=== PATIENT | female | born 1935 | race Caucasian/White ===

== ENCOUNTER → 2016-09-02 | Outpatient (CLI) | payer MEDICARE, OTHER ==
[~2016-09-02] VITALS: Ht 167.6 cm; Wt 59.9 kg
[~2016-09-02] MED LIST: REGADENOSON 0.4 MG/5 ML SYR (LEXISCAN) IV ONE
[2016-09-02] MEDS: CATHETER FLUSH 10 ML SYR IV PRN ×2 (08:38→10:05)
[2016-09-02 10:03] VITALS: BP 159/57
--- NOTE | 2016-09-02 18:32 | STRESS TEST ---
PROCEDURE PHYSICIAN: HIPOLITO AGUDELO DATE OF PROCEDURE: 09/02/2016 LEXISCAN MYOVIEW STRESS TEST REPORT REFERRING PHYSICIAN: Dr. Carpenter. INDICATIONS FOR THE PROCEDURE: 1. Shortness of breath. 2. Hypertension. BASELINE HEART RATE: 86 BASELINE BLOOD PRESSURE: 159/57 BASELINE EKG: Sinus rhythm with no ischemic changes. SUMMARY: The patient was injected with 9.95 mCi of technetium 99 Myoview and the resting images were obtained. Then the patient received 0.4 mg of Lexiscan followed by 32.9 mCi of technetium 99 Myoview. Throughout the test, there were no EKG changes. The resting and stress images were reviewed compared in the short axis, horizontal long axis, and vertical long axis views. Review of the images showed good radiotracer uptake with no significant ischemia or infarction. SSS is 4, SDS 4, TID value 0.99. On the gated images, the left ventricle appeared to be normal size with normal contractility. Calculated ejection fraction 87%. CONCLUSION: 1. The patient tolerated Lexiscan well. 2. No ischemia or infarction on SPECT images. 3. Normal left ventricular size with normal contractility. Calculated ejection fraction 87%. Job ID: [id number] Dictated Date: 09/02/2016 17:03:18 Director Of Enterprise Applications Date: 09/02/2016 18:29:54 / boy
== END ==
LOC: CARD 08:02
PROVIDERS: ATTEND Internal Medicine Cardiovascular Disease
DX: I10 Essential (primary) hypertension (principal); R07.89 Other chest pain; R06.02 Shortness of breath; Z83.3 Family history of diabetes mellitus
CPT/HCPCS: 78452; 93017

== ENCOUNTER → 2016-09-10 | Outpatient (CLI) | payer MEDICARE, OTHER ==
--- NOTE | 2016-09-10 17:41 | Diagnostic Imaging Report ---
EXAMINATION: PET-CT TECHNIQUE: Serum glucose level at the time of the study is: 112 mg/dL. 12.2 mCi of FDG was administered intravenously followed by obtaining PET images with corresponding noncontrast CT scan images. The CT scan was performed for anatomic correlation and attenuation correction and was not performed according to the diagnostic protocol of the areas covered. The scan was performed from the head to mid thighs. INDICATION: Left lung mass. FINDINGS: There is symmetric FDG uptake in the brain. The neck demonstrates no suspicious increased FDG uptake. Mild uptake around the vocal cords is likely physiologic. No correlating CT scan abnormality seen. In the posterior lateral aspect of the left upper lobe, there is a nodule measuring 2.3 x 1.4 cm with peripheral calcification. This is a nonspecific CT scan appearance and is not diagnostic for a calcified granuloma. There is however baseline FDG activity in this nodule with maximum SUV of 1.4 in favor of benign etiology such as a post infectious granuloma. There is otherwise no significant hypermetabolic lesion seen in the chest. IN THE ABDOMEN AND PELVIS: There is urinary tract expected excretion of the radiotracer. No hypermetabolic mass is seen otherwise. IMPRESSION: Left upper lobe nonspecific peripheral calcified lung nodule demonstrates no significant FDG uptake in favor of benign etiology. A three-month followup low dose CT chest to ensure stability is recommended. Dictated by: Dictated on workstation # [id number]
== END ==
LOC: RAD 08:43
PROVIDERS: ATTEND Internal Medicine Critical Care Medicine
DX: R91.1 Solitary pulmonary nodule (principal)

== ENCOUNTER 2017-11-17 09:34 | Inpatient (IN) | payer MEDICARE, OTHER ==
[~2017-11-17] VITALS: Ht 168.9 cm; Wt 56.4 kg
[2017-11-17 22:50] VITALS: BP 144/89
[2017-11-17] MEDS ORDERED: HEParin DRIP 25000 UNIT/500ML 500 ML IV SCH (22:56)
[2017-11-17 23:00] VITALS: BP 149/74
[2017-11-17] MEDS ORDERED: FAMOTIDINE 20 MG (PEPCID) TABLET PO PRN (23:00)
[2017-11-17] MEDS ORDERED: HEParin 1000 UNIT/ML (10ML VIAL) FOR BOLUS IV PRN (23:00)
--- NOTE | 2017-11-17 23:03 | Cardiology History & Physical ---
HPI-Cardiology Cardiology Consultation Date of Consultation 11/17/17 Date of Admission Time Seen by Provider: 22:57 Indication: Shortness of breath HPI 82 years old lady with history of hypertension or hyperlipidemia, has been having increasing shortness of breath for the past 2 weeks which progressed to the point that she has orthopnea and PND. Denied any chest pain. Denied any palpitation, seen by Dr. AHUJA this morning and she was sent to the emergency room where she was noted to have elevated BNP and mild elevation in troponin level. She still laying down comfortably denied any active chest pain at this point. No previous cardiac history. Noted to have abnormal EKG with deep Q waves in the anterior leads and ST changes suggestive of subacute [facility] PMH-Cardiology Other PMHx Hypertension Hyperlipidemia Social History Patient Social History Marrital Status: single Employed/Student: retired Smoking: Never smoker Family Hx Other Noncontributory to her current condition ROS-Cardiology Review of Systems General: No Chills, No Night Sweats, No Fatigue, No Malaise, No Appetite HEENT: No Head Aches, No Visual Changes, No Eye Pain, No Ear Pain, No Dysphasia , No Sinus Congestion, No Post Nasal Drip, No Sore Throat Pulmonary: Dyspnea; No Cough, No Pleuritic Chest Pain Cardiovascular: Edema; No: Chest Pain, Palpitations, Orthopnea, Paroxysmal Noc. Dyspnea, Lt Headedness Gastrointestinal: No: Nausea, Vomiting, Abdominal Pain, Diarrhea, Constipation , Melena, Hematochezia Genitourinary: No Dysuria, No Frequency, No Incontinence, No Hematuria, No Retention Musculoskeletal: No: neck pain, shoulder pain, arm pain, back pain, hand pain, leg pain, foot pain Neurological: No: Weakness, Numbness, Incoordination, Change in speech, Confusion, Seizures Home Medications & Allergies Allergies: Coded Allergies: amoxicillin (Unverified Allergy, Unknown, 09/02/16) Exam-Cardiology Exam General Appearance: Alert, Oriented X3, Cooperative, No Acute Distress HEENT: Atraumatic, PERRLA Respiratory: Clear to Auscultation, Normal Air Movement Cardiovascular: Regular Rate, Normal S1, Normal S2, No Murmurs, Other (S3 is present) Abdominal: Normal Bowel Sounds, Soft, No Tenderness, No Hepatosplenomegaly, No Masses Extremities: No Clubbing, No Cyanosis, No Edema, Normal Pulses, No Tenderness/ Swelling Skin: No Rashes, No Breakdown, No Significant Lesion Neuro: Normal Gait, Normal Speech, Strength at 5/5 X4 Ext, Normal Tone, Sensation Intact Psych/Mental Status: Mental Status NL, Mood NL Results Labs Labs Labs from [facility] were reviewed, mild elevation in troponin, BNP is 3000 A/P-Cardiology Admission Diagnosis Shortness of breath Congestive heart failure Hypertension Hyperlipidemia Admission Status: Observation Assessment/Plan Shortness of breath, congestive heart failure with elevated BNP, previously had normal echocardiogram. Had a normal stress test in August 2016, mild elevation in troponin level. I will continue monitoring troponin level and reevaluate BNP level. Continue with diuretics for now Stress test was done on September 02, 2016 showing no ischemia or infarction, ejection fraction 87 percent, continue to monitor at this time Echocardiogram was done on August 16, 2016 showing normal left ventricular size with ejection fraction 65 percent, mild to moderate MR, mild to moderate AR, mild TR, PA pressure 25 mmHg, repeat 2-D echo in the morning Mild bilateral carotid stenosis, nonobstructive disease, last checkup was done in August 2016, continue to monitor Hypertension, has been on atenolol and amlodipine. Continue to monitor Hyperlipidemia, lipid profile was done on August 23, 2016 showing total cholesterol 185, triglyceride 157, HDL 58, LDL 31. I will repeat lipid profile. Mild peripheral edema, reporting improvement. Continue to monitor History of Pulmonary nodule, noted incidentally. Followed and managed by primary care physician Family history of heart disease. HIPOLITO AGUDELO MD Nov 17, 2017 23:03
[2017-11-17 23:15] VITALS: BP 149/74
[2017-11-17 23:30] VITALS: BP 142/77
[2017-11-17 23:30] LABS: HEMOGLOBIN 13.2 G/DL (11.5-16.0); MEAN PLATELET VOLUME 12.2 FL (7.4-10.4); RED BLOOD COUNT 4.41 10^6/uL (4.35-5.85); RED CELL DISTRIBUTION WIDTH 14.7 % (10.0-14.5)
[2017-11-17 23:43] LABS: INR 1.1 (0.8-1.4); PROTHROMBIN TIME PATIENT 14.2 SEC (12.2-14.7)
[2017-11-17 23:45] VITALS: BP 137/66
[2017-11-18] VITALS (22 sets, daily range): BP systolic 44–133; BP diastolic 28–103
[2017-11-18 06:12] LABS: HEMOGLOBIN 12.1 G/DL (11.5-16.0); MEAN PLATELET VOLUME 11.9 FL (7.4-10.4); RED BLOOD COUNT 4.23 10^6/uL (4.35-5.85); RED CELL DISTRIBUTION WIDTH 14.7 % (10.0-14.5); WHITE BLOOD COUNT 5.8 10^3/uL (4.3-11.0)
[2017-11-18 06:34] LABS: ALANINE AMINOTRANSFERASE 35 U/L (0-55); ALBUMIN 3.8 GM/DL (3.2-4.5); ALKALINE PHOSPHATASE 94 U/L (40-136); BILIRUBIN,TOTAL 0.6 MG/DL (0.1-1.0); BUN/CREATININE RATIO 16; CALCIUM 9.1 MG/DL (8.5-10.1); CARBON DIOXIDE 23 MMOL/L (21-32); CHLORIDE 106 MMOL/L (98-107); CHOLESTEROL 146 MG/DL (< 200); CREATININE SERUM 1.17 MG/DL (0.60-1.30); GFR ESTIMATED 44; GLUCOSE 102 MG/DL (70-105); HDL CHOLESTEROL 64 MG/DL (40-60); POTASSIUM 3.8 MMOL/L (3.6-5.0); SODIUM 144 MMOL/L (135-145); TOTAL PROTEIN 6.3 GM/DL (6.4-8.2); TRIGLYCERIDES 87 MG/DL (<150); VLDL CHOLESTEROL 17 MG/DL (5-40)
--- NOTE | 2017-11-18 07:47 | Cardiology Progress Note ---
Subjective Date Seen by Provider: Nov 18, 2017 Time Seen by Provider: 07:43 Subjective/Events-last exam Patient is laying down in bed, feeling better, complaining of leg cramps. Denied any chest pain. Breathing better. Review of Systems General: No Chills, No Night Sweats, No Fatigue, No Malaise, No Appetite, No Other HEENT: No Head Aches, No Visual Changes, No Eye Pain, No Ear Pain, No Dysphasia , No Sinus Congestion, No Post Nasal Drip, No Sore Throat, No Other Pulmonary: Dyspnea; No Cough, No Pleuritic Chest Pain, No Other Cardiovascular: No: Chest Pain, Palpitations, Orthopnea, Paroxysmal Noc. Dyspnea, Edema, Lt Headedness, Other Objective-Cardiology Exam Last Set of Vital Signs Vital Signs 11/18/17 11/18/17 04:00 04:10 Temp 98.0 Pulse 84 Resp 22 B/P (MAP) 119/60 (79) Pulse Ox 92 O2 Delivery Nasal Cannula O2 Flow Rate 2.00 Capillary Refill : I&O Intake and Output 11/18/17 00:00 Daily Weight Change No General: Alert, Oriented X3, Cooperative, No Acute Distress HEENT: Atraumatic, PERRLA Lungs: Clear to Auscultation, Normal Air Movement Heart: Regular Rate, Normal S1, Normal S2, No Murmurs, Other (S3 is present) Abdomen: Normal Bowel Sounds, Soft, No Tenderness, No Hepatosplenomegaly, No Masses Extremities: No Clubbing, No Cyanosis, No Edema, Normal Pulses, No Tenderness/ Swelling Skin: No Rashes, No Breakdown, No Significant Lesion Neuro: Normal Gait, Normal Speech, Strength at 5/5 X4 Ext, Normal Tone, Sensation Intact Psych/Mental Status: Mental Status NL, Mood NL Results Lab Laboratory Tests 11/17/17 23:20 11/18/17 06:05 A/P-Cardiology Admission Diagnosis Shortness of breath Congestive heart failure Hypertension Hyperlipidemia Assessment/Plan Shortness of breath, congestive heart failure with elevated BNP, previously had normal echocardiogram. Had a normal stress test in August 2016, mild elevation in troponin level. I will continue monitoring troponin level and reevaluate BNP level. Continue with diuretics for now Mild thrombocytopenia, becoming worse, could be secondary to heparin, I will stop heparin drip at this time. Stress test was done on September 02, 2016 showing no ischemia or infarction, ejection fraction 87 percent, continue to monitor at this time Echocardiogram was done on August 16, 2016 showing normal left ventricular size with ejection fraction 65 percent, mild to moderate MR, mild to moderate AR, mild TR, PA pressure 25 mmHg, repeat 2-D echo today Mild bilateral carotid stenosis, nonobstructive disease, last checkup was done in August 2016, continue to monitor Hypertension, has been on atenolol and amlodipine. Continue to monitor Hyperlipidemia, lipid profile was done on August 23, 2016 showing total cholesterol 185, triglyceride 157, HDL 58, LDL 31. I will repeat lipid profile. Mild peripheral edema, reporting improvement. Continue to monitor History of Pulmonary nodule, noted incidentally. Followed and managed by primary care physician Family history of heart disease. Clinical Quality Measures DVT/VTE Risk/Contraindication: Risk Factor Score Per Nursin RFS Level Per Nursing on Admit: 2=Moderate HIPOLITO AGUDELO MD Nov 18, 2017 07:47
[2017-11-18] MEDS ORDERED: FUROSEMIDE 40 MG/4 ML INJ (LASIX) IVP NR (08:00)
--- NOTE | 2017-11-18 08:13 | Pulmonary Consultation ---
History of Present Illness History of Present Illness Date of Consultation 11/18/17 08:08 Time Seen by Provider: 08:30 Date of Admission Reason for Visit: Shortness of breath History of Present Illness 82yo with hx of lung mass presented secondary to worsening SOB and orthopnea over the last 2wks prior to admission. no prior episodes like this. In ED she was found to have increased BNP, elevated troponin. and bilateral LE edema. I am consulted for pulmonary management. Allergies and Home Medications Allergies Coded Allergies: Sulfa (Sulfonamide Antibiotics) (Verified Allergy, Severe, HIVES, 11/18/17) amoxicillin (Verified Allergy, Severe, HIVES, 11/18/17) Home Medications Aspirin 81 Mg Tab.chew, 81 MG PO DAILY Prescribed by: FRANCOISE GEE on 11/20/17 09 Clopidogrel Bisulfate 75 Mg Tablet, 75 MG PO DAILY Prescribed by: FRANCOISE GEE on 11/20/17 09 Furosemide 20 Mg Tablet, 20 MG PO Q48H Prescribed by: FRANCOISE GEE on 11/20/17 09 Loratadine 10 Mg Tablet, 10 MG PO DAILY, (Reported) Losartan Potassium 25 Mg Tablet, 25 MG PO DAILY Prescribed by: FRANCOISE GEE on 11/20/17 09 Metoprolol Succinate 25 Mg Tab.er.24h, 25 MG PO DAILY Prescribed by: FRANCOISE GEE on 11/20/17 09 Potassium Chloride 10 Meq Tablet.er, 10 MEQ PO Q48H Prescribed by: FRANCOISE GEE on 11/20/17 0908 Simvastatin 40 Mg Tablet, 40 MG PO HS, (Reported) Past [id number]-[id number] Hx Patient Social History Alcohol Use: Denies Use Recreational Drug Use: No Smoking Status: Never a Smoker Recent Foreign Travel: No Contact w/Someone Who Travel: No Recent Infectious Disease Expo: No Recent Hopitalizations: No Immunizations Up To Date PED Vaccines UTD: No Date of Pneumonia Vaccine: Apr 16, 2013 Seasonal Allergies Seasonal Allergies: Yes Past Medical History Surgeries: Yes Respiratory: No Currently Using CPAP: No Currently Using BIPAP: No Cardiac: Yes Neurological: No Female Reproductive Disorders: Endometriosis HIV/AIDS: Yes Genitourinary: No Gastrointestinal: Yes Gastroesophageal Reflux Musculoskeletal: Yes Arthritis Endocrine: No HEENT: Yes Cataract Loss of Vision: Denies Hearing Impairment: Denies Cancer: No Psychosocial: No Integumentary: No Blood Disorders: No Adverse Reaction/Blood Tranf: No Family Medical History AIDS Cardiovascular disease 19 MOTHER, , Onset:Unknown Colon cancer G8 SISTER, , Onset:Unknown FH: CHF (congestive heart failure) 19 FATHER, , Onset:Unknown 19 MOTHER, , Onset:Unknown FH: CVA (cerebrovascular accident) G8 SISTER, , Onset:Unknown Hypertension 19 MOTHER, , Onset:Unknown Parkinson's disease G8 SISTER, Review of Systems Time Seen by Provider: 08:35 Constitutional: Weakness, Malaise; No: Fever, Chills, Sweats, Other Eyes: No: Pain, Vision change, Conjunctivae inflammation, Eyelid inflammation, Other, Redness ENT: No: Ear pain, Ear discharge, Nose pain, Nose discharge, Nose congestion, Mouth pain, Mouth swelling, Throat pain, Throat swelling, Other Respiratory: Cough, Dry, Shortness of breath, Wheezing; No: Hemoptysis Cardiovascular: Chest Pain, Orthopnea, Paroxysmal Noc. Dyspnea, Edema Gastrointestinal: No: Nausea, Vomiting, Abdominal Pain, Diarrhea, Constipation , Melena, Hematochezia, Other Neurological: Weakness Exam Exam Vital Signs Date Time Temp Pulse Resp B/P (MAP) Pulse Ox O2 Delivery O2 Flow Rate FiO2 11/18/17 08:00 94 18 118/66 (83) 95 Room Air 11/18/17 04:10 98.0 11/18/17 04:00 84 22 119/60 (79) 92 Nasal Cannula 2.00 11/18/17 03:00 78 22 119/57 (77) 90 Nasal Cannula 2.00 11/18/17 02:00 91 17 114/103 (107) 94 Nasal Cannula 2.00 11/18/17 01:00 89 20 118/61 (80) 94 Nasal Cannula 2.00 11/18/17 01:00 89 11/18/17 00:30 80 24 133/65 (87) 91 Nasal Cannula 2.00 11/18/17 00:00 86 24 117/63 (81) 92 Nasal Cannula 2.00 11/17/17 23:45 81 29 137/66 (89) 94 Nasal Cannula 2.00 11/17/17 23:41 Nasal Cannula 2.00 11/17/17 23:30 89 35 142/77 (98) 94 Nasal Cannula 2.00 11/17/17 23:15 83 35 149/74 (99) 94 Nasal Cannula 2.00 11/17/17 23:00 89 18 149/74 (99) 95 Nasal Cannula 2.00 11/17/17 22:53 93 11/17/17 22:50 98.1 87 22 144/89 (107) 96 Nasal Cannula 2.00 11/17/17 22:50 98.1 87 22 I & O 11/18/17 07:00 Intake Total 50 ml Output Total 3900 ml Balance -3850 ml General Appearance: No Apparent Distress, Anxious HEENT: PERRL/EOMI, Pharynx Normal Neck: Full Range of Motion, Normal Inspection, Non Tender, Supple Respiratory: No Accessory Muscle Use, No Respiratory Distress, Decreased Breath Sounds Gastrointestinal: normal bowel sounds, non tender, soft, no organomegaly, no pulsatile mass Extremity: Normal Capillary Refill, Normal Inspection Neurologic/Psychiatric: Alert, Oriented x3 Skin: Normal Color, Warm/Dry Lymphatic: No Adenopathy Results Lab Laboratory Tests 11/17/17 23:20 11/18/17 06:05 Assessment/Plan Assessment/Plan Worsening SOB with CHF -Lasix peripheral PIPER Lung mass r/o Cancer -Negative PET in 08/31- radiology recommended 3 mo f/u -Will check a CT to evaluate stability Never smoker Labs and radiology reviewed 254 MORTEZA WOODRUFF DO Nov 18, 2017 08:13
[2017-11-18] MEDS ORDERED: ASPIRIN E.C. 325 MG (ECOTRIN) TABLET PO SCH (09:00)
[2017-11-18] MEDS ORDERED: amLODIPine 5 MG (NORVASC) TAB PO SCH (09:00)
[2017-11-18] MEDS ORDERED: ATENOLOL 25 MG (TENORMIN) TAB PO SCH (09:00)
[2017-11-18] MEDS: ATENOLOL 25 MG (TENORMIN) TAB PO SCH (10:09)
[2017-11-18] MEDS ORDERED: ATEN25TA PO (11:52)
[2017-11-18] MEDS ORDERED: SIMV40TA PO (11:52)
[2017-11-18] MEDS ORDERED: AMLO2.5T PO (11:52)
[2017-11-18] MEDS ORDERED: IBUP-30 PO (11:59)
[2017-11-18] MEDS ORDERED: ASPI-983 PO (11:59)
[2017-11-18] MEDS ORDERED: LORA10TA7 PO (11:59)
[2017-11-18] MEDS ORDERED: NS IV 1000 ML 1,000 ML IV SCH ×4 (12:45→19:30)
[2017-11-18 14:00] LABS: INR 1.1 (0.8-1.4); PROTHROMBIN TIME PATIENT 13.8 SEC (12.2-14.7)
[2017-11-18] MEDS ORDERED: NS IV 1000 ML 0 ML ONE (15:32)
[2017-11-18] MEDS ORDERED: LIDOCAINE 1% INJ 20 ML 20 ML VIAL ONE ×3 (15:32→19:44)
[2017-11-18] MEDS ORDERED: HEParin (CATH LAB) 0 ML IV ONE (15:32)
--- NOTE | 2017-11-18 15:34 | Diagnostic Imaging Report ---
PROCEDURE: CT chest without contrast. TECHNIQUE: Multiple contiguous axial images were obtained through the chest without the use of intravenous contrast. INDICATION: CHF. Mass. Evaluate for adenopathy. COMPARISON: CT PET dated 09/10/2016. FINDINGS: Evaluation of lung martinez demonstrates juxtapleural partially calcified nodular density in the posterior lateral left upper lobe and measures 1.1 x 2.2 cm. Note is made of presence of the nodule on previous CT PET dated 09/10/2016 without evidence of significant PET activity. It is stable in size when compared to prior CT PET in which it measured 1.4 x 2.3 cm. Small 5 mm micronodules also noted within the medial margins of the right upper lobe (image 18, series 2). This too is stable compared to prior CT PET. There is mild layering pleural effusion on the right and a small layering effusion on the left. There is also associated atelectasis. These findings may obscure nodular micronodule. Otherwise, no new suspicious pulmonary nodule or mass is identified. No other focal consolidation is identified. There is no pneumothorax. Cardiomediastinal structures show normal heart size. There is small pericardial effusion. There is moderate calcified aortic atherosclerosis and mild calcified coronary atherosclerosis. No pathologically enlarged or morphologically abnormal mediastinal, hilar, nor axillary adenopathy is seen on this noncontrast exam. Bony structures show no acute abnormalities. Included portions of the upper abdomen are unremarkable. IMPRESSION: 1. Stable nodule in the left upper lobe and micronodule in the right upper lobe. Six month follow up could be performed to ensure ongoing stability. 2. Mild bilateral pleural effusions, right greater than left. 3. Small pericardial effusion, but no abnormal mediastinal or hilar adenopathy is identified. Dictated by: Dictated on workstation # [id number]
[2017-11-18] MEDS ORDERED: fentaNYL INJECTION 100 MCG/2 ML AMP ONE ×2 (16:22→19:45)
[2017-11-18] MEDS ORDERED: HEParin (CATH LAB) 2,000 ML IV ONE ×2 (16:23→19:44)
[2017-11-18] MEDS ORDERED: MIDAZOLAM 2 MG/2 ML (VERSED) VIAL ONE ×2 (16:23→19:45)
[2017-11-18] MEDS ORDERED: HEParin 1000 UNIT/ML (10ML VIAL) FOR BOLUS ONE (17:06)
[2017-11-18] MEDS ORDERED: NITRO DRIP 25000 MCG/D5W 250 ML IV ONE (17:08)
[2017-11-18] MEDS: NS IV 1000 ML 1,000 ML IV SCH (17:21)
--- NOTE | 2017-11-18 17:27 | Cardiac Cath Report ---
Cardiac Cath Report Physician (s)/Sociology Faculty Member (s) Physician HIPOLITO AGUDELO MD Pre-Procedure Diagnosis Pre-Procedure Diagnosis: Congestive heart failure Post-Procedure Note Procedure Start Date: Nov 18, 2017 Name of Procedure: Left heart catheterization Stent to the LAD Findings/Procedure Note PROCEDURE NOTE: After explaining the procedure to the patient, all pros and cons were explained , all questions were answered. The patient signed the consent and then she was placed on the cardiac catheterization laboratory. Groin was prepped SL fashion local anesthesia was used. Sheath placed in the right femoral artery. Concepcion right and left catheter were used to access the coronary system. Pigtail was used to access the left ventricular cavity. Left ventriculogram was not done, pressure was measured Patient had 70 percent stenosis in the mid LAD with haziness suggestive of thrombus on ulcerated plaque. I decided to proceed with percutaneous intervention, FL guide was used, BMW wire was advanced to the LAD and 6000 units of heparin were given. I proceeded with primary stenting using Alpine 3.5 15 mm expanded to 3.6 mm with excellent results no residual stenosis. At the end of the procedure the sheath was removed. Closure device was used FINDINGS: Hemodynamics LV 132/18, and diastolic pressure of 18 Aorta 124/50 mean of 43 ANATOMY: Left Main Is free of obstructive disease Left Anterior Descending Has ulcerated plaque at the midportion with haziness suggestive of thrombus, successful primary stenting using Alpine 3.515 mm stent expanded to 3.6 mm with excellent results Left Circumflex Has mild disease nonobstructive disease Right Coronory Artery Has mild disease nonobstructive disease LV Gram Was not done, pressure was measured CONCLUSION: 1. Ulcerated plaque at the mid LAD with haziness suggestive of thrombus, successful primary stenting using Alpine drug-eluting stent 3.5 x 50 mm expanded to 3.6 mm with excellent results 2. Otherwise mild coronary artery disease nonobstructive disease 3. Normal left ventricular end-diastolic pressure DISCUSSION AND RECOMMENDATION: Patient was started on aspirin and Plavix, I'll continue maximizing medical therapy. Anesthesia Type: Conscious Sedation Estimated blood loss (mL): 10 ml Contrast Amount: 84 ml Total Radiation Dose: 184 mGy Post-Procedure Diagnosis Post-operative diagnosis: Coronary artery disease Congestive heart failure Shortness of breath Hypertension HIPOLITO AGUDELO MD Nov 18, 2017 17:27
[2017-11-18] MEDS ORDERED: PATIENT MAY USE OWN MEDS, ALL PO SCH (17:30)
[2017-11-18] MEDS ORDERED: CLOPIDOGREL 300 MG (PLAVIX) TABLET PO ONE (17:33)
[2017-11-18] MEDS ORDERED: DOPamine DRIP 250 ML IV ONE (18:21)
[2017-11-18] MEDS: DOPamine DRIP 250 ML IV SCH (18:25)
[2017-11-18 18:38] LABS: BASOPHILS % (AUTO) 0 % (0-10); EOSINOPHILS # (AUTO) 0.4 10^3/uL (0.0-0.3); EOSINOPHILS % (AUTO) 6 % (0-10); HEMATOCRIT 33 % (35-52); HEMOGLOBIN 10.8 G/DL (11.5-16.0); LYMPHOCYTES # (AUTO) 1.4 X 10^3 (1.0-4.0); LYMPHOCYTES % (AUTO) 21 % (12-44); MEAN CORPUSCULAR HEMOGLOBIN 29 PG (25-34); MEAN CORPUSCULAR HGB CONC 33 G/DL (32-36); MEAN CORPUSCULAR VOLUME 88 FL (80-99); MEAN PLATELET VOLUME 11.9 FL (7.4-10.4); MONOCYTES # (AUTO) 0.9 X 10^3 (0.0-1.0); MONOCYTES % (AUTO) 13 % (0-12); NEUTROPHILS # (AUTO) 3.8 X 10^3 (1.8-7.8); NEUTROPHILS % (AUTO) 59 % (42-75); PLATELET COUNT 136 10^3/uL (130-400); RED BLOOD COUNT 3.76 10^6/uL (4.35-5.85); RED CELL DISTRIBUTION WIDTH 14.8 % (10.0-14.5); WHITE BLOOD COUNT 6.5 10^3/uL (4.3-11.0)
[2017-11-18] MEDS ORDERED: NS 100 ML (IVPB) BAG IV ONE (19:00)
[2017-11-18] MEDS ORDERED: IOHEXOL 350 MG/ML 100 ML (OMNIPAQUE 350) VIAL IV ONE (19:00)
[2017-11-18] MEDS ORDERED: ONDANSETRON 4 MG/2 ML (SDV) Z0FRAN ONE ×2 (19:12→20:22)
--- NOTE | 2017-11-18 19:56 | Diagnostic Imaging Report ---
PROCEDURE: CT abdomen and pelvis without contrast. TECHNIQUE: Multiple contiguous axial images were obtained through the abdomen and pelvis without the use of intravenous contrast. INDICATION: Post heart catheter with right groin pain and swelling. FINDINGS: Noncontrasted study shows bilateral pleural effusions with mild bilateral interstitial infiltrates. There is hematoma in the right groin which does track along the retroperitoneal space to the right iliopsoas muscle. This does not represent a large hematoma in the retroperitoneal space. There is no free fluid in the abdomen. Liver appears normal. Gallbladder is absent. Pancreas and spleen are normal. The adrenal glands appear normal. Kidneys appear normal with contrast from previous heart catheter showing normal collecting system. Bladder is well-distended and normal. Bowel gas pattern appears normal throughout with diverticulosis. No evidence of diverticulitis. No free air or free fluid. IMPRESSION: There is small hematoma in the right groin with some tracking of hematoma in the retroperitoneal space along the right iliopsoas muscle. No evidence of large hematoma or free intraperitoneal hemorrhage. Dictated by: Dictated on workstation # [id number]
[2017-11-18] MEDS ORDERED: NS IV 500 ML 500 ML ONE (20:01)
[2017-11-18] MEDS ORDERED: FUROSEMIDE 40 MG/4 ML INJ (LASIX) IVP ONE (21:00)
[2017-11-19] VITALS (23 sets, daily range): BP systolic 101–135; BP diastolic 48–96
[2017-11-19 03:54] LABS: HEMOGLOBIN 12.6 G/DL (11.5-16.0); MEAN PLATELET VOLUME 11.6 FL (7.4-10.4); RED BLOOD COUNT 4.28 10^6/uL (4.35-5.85); WHITE BLOOD COUNT 6.1 10^3/uL (4.3-11.0)
[2017-11-19 04:20] LABS: CALCIUM 7.3 MG/DL (8.5-10.1); CREATININE SERUM 1.03 MG/DL (0.60-1.30); MAGNESIUM 1.4 MG/DL (1.8-2.4); POTASSIUM 3.7 MMOL/L (3.6-5.0)
[2017-11-19] MEDS: POTASSIUM CL 10MEQ/50ML IVPB 50 ML IV SCH (05:18)
[2017-11-19] MEDS: KCL 20 MEQ TAB (K-DUR) PO SCH (05:18)
[2017-11-19] MEDS: MAGNESIUM 1 GM/100 ML IVPB 100 ML IV SCH ×3 (05:22→06:50)
[2017-11-19] MEDS: NS IV 1000 ML 1,000 ML IV SCH ×2 (05:41→18:11)
--- NOTE | 2017-11-19 05:57 | Pulmonary Progress Note ---
Subjective Time Seen by Provider: 05:57 Subjective/Events-last exam Pt became hypotensive yesterday after cath. She was started on Dopamine and given 2 units of PRBC. Exam Exam Vital Signs Date Time Temp Pulse Resp B/P (MAP) Pulse Ox O2 Delivery O2 Flow Rate FiO2 11/19/17 05:00 75 11 122/52 (75) 93 Nasal Cannula 2.00 11/19/17 04:00 78 21 108/49 (68) 97 Nasal Cannula 2.00 11/19/17 04:00 95 Nasal Cannula 2.00 11/19/17 03:48 97.8 11/19/17 03:00 80 21 119/48 (71) 93 Nasal Cannula 2.00 11/19/17 02:00 83 20 119/61 (80) 95 Nasal Cannula 2.00 11/19/17 01:00 80 12 101/49 (66) 97 Nasal Cannula 2.00 11/19/17 01:00 81 11/19/17 00:43 82 17 120/60 (80) 98 Nasal Cannula 2.00 11/19/17 00:22 97.7 11/19/17 00:00 95 Nasal Cannula 2.00 11/18/17 23:00 83 13 126/61 (82) 99 Nasal Cannula 2.00 11/18/17 22:00 81 18 98/77 (84) 97 Nasal Cannula 2.00 11/18/17 21:00 105 27 121/66 (84) 100 Nasal Cannula 2.00 11/18/17 20:58 96.5 121/66 (84) Nasal Cannula 2.00 11/18/17 20:50 95 Nasal Cannula 2.00 11/18/17 19:00 98 20 100/56 (71) 93 Nasal Cannula 2.00 11/18/17 18:45 98 20 100/56 (71) 93 Nasal Cannula 2.00 11/18/17 18:40 85 15 98/48 (65) 97 Nasal Cannula 2.00 11/18/17 18:40 98.3 Nasal Cannula 2.00 11/18/17 18:35 72 42 107/94 (98) 87 Nasal Cannula 2.00 11/18/17 18:30 78 19 Room Air 11/18/17 18:25 79 24 117/101 (106) Room Air 11/18/17 18:25 81 22 105/59 Room Air 11/18/17 18:20 74 14 117/101 (106) Room Air 11/18/17 18:15 80 23 82/43 (56) Room Air 11/18/17 18:10 71 20 44/28 (33) Room Air 11/18/17 18:05 85 21 81/40 (54) Room Air 11/18/17 17:45 98.4 84 118/57 (77) Room Air 11/18/17 13:00 78 11/18/17 11:51 74 23 128/64 (85) 95 Room Air 11/18/17 11:30 97.5 11/18/17 08:00 94 18 118/66 (83) 95 Room Air 11/18/17 08:00 95 Room Air 11/18/17 07:00 82 I & O 11/19/17 07:00 Intake Total 3550 ml Output Total 2250 ml Balance 1300 ml General Appearance: No Apparent Distress, WD/WN, Thin HEENT: Normal ENT Inspection, Pharynx Normal Neck: Full Range of Motion, Non Tender, Supple Respiratory: Chest Non Tender, No Accessory Muscle Use, No Respiratory Distress Cardiovascular: Regular Rate, Rhythm, No Edema, Normal Peripheral Pulses Capillary Refill: Less Than 3 Seconds Gastrointestinal: normal bowel sounds, non tender, soft, no organomegaly Extremity: Normal Capillary Refill, Normal Inspection, Normal Range of Motion Neurologic/Psychiatric: Alert Skin: Normal Color, Warm/Dry Lymphatic: No Adenopathy Results Lab Laboratory Tests 11/17/17 23:20 11/18/17 06:05 11/18/17 18:30 11/19/17 03:35 Assessment/Plan Assessment/Plan Worsening SOB with CHF EF 20% -s/p Lasix - SOB improved after Lasix -Cardiology following CAD s/p Cath with stent placement peripheral PIPER Lung mass r/o Cancer -Negative PET in 08/31- radiology recommended 3 mo f/u -Will check a CT to evaluate stability S/p hypotension improved after 2 units of PRBC -Dopamine is now off Hypomagnesium -replace Never smoker Labs and radiology reviewed 233 MORTEZA WOODRUFF DO Nov 19, 2017 05:57
[2017-11-19] MEDS ORDERED: FUROSEMIDE 40 MG/4 ML INJ (LASIX) IVP NR ×2 (06:00→07:30)
--- NOTE | 2017-11-19 07:35 | Cardiology Progress Note ---
Subjective Date Seen by Provider: Nov 19, 2017 Time Seen by Provider: 07:30 Subjective/Events-last exam Patient is laying down comfortably in bed, blood pressure is stable, feeling better. Denied any chest pain, groin is healing well. Last night after the cardiac catheterization patient started having dry heaves and nausea and vomited, was hypotensive, did not respond to IV fluid. Blood pressure was down in the 80s. Patient was pale and lethargic. Manual pressure was held to the groin and then I proceeded with CT of the abdomen and pelvis which showed small bleed. Continue to hold pressure on the groin, patient was complaining of upper and lower back pain. I decided to proceed with emergency catheterization using the left groin and reevaluated the left coronary system that showed patent stent with good flow, I evaluated the thoracic aorta that appeared normal and evaluated the right femoral artery and iliac artery that appeared intact with no active bleeding. The sheath in the left groin was removed and manual pressure applied. Since then she has been stable and feeling better. Review of Systems General: No Chills, No Night Sweats; Fatigue; No Malaise, No Appetite, No Other HEENT: No Head Aches, No Visual Changes, No Eye Pain, No Ear Pain, No Dysphasia , No Sinus Congestion, No Post Nasal Drip, No Sore Throat, No Other Pulmonary: No Dyspnea, No Cough, No Pleuritic Chest Pain, No Other Cardiovascular: No: Chest Pain, Palpitations, Orthopnea, Paroxysmal Noc. Dyspnea, Edema, Lt Headedness, Other Objective-Cardiology Exam Last Set of Vital Signs Vital Signs 11/19/17 11/19/17 03:48 05:00 Temp 97.8 Pulse 75 Resp 11 B/P (MAP) 122/52 (75) Pulse Ox 93 O2 Delivery Nasal Cannula O2 Flow Rate 2.00 Capillary Refill : Less Than 3 Seconds I&O Intake and Output 11/19/17 00:00 Intake Total 3550 ml Output Total 5075 ml Balance -1525 ml Intake Oral 550 ml IV Total 3000 ml Output Urine Total 5075 ml General: Alert, Oriented X3, Cooperative, No Acute Distress HEENT: Atraumatic, PERRLA Neck: Supple Lungs: Clear to Auscultation, Normal Air Movement Heart: Regular Rate, Normal S1, Normal S2, No Murmurs, Other (S3 is present) Abdomen: Normal Bowel Sounds, Soft, No Tenderness, No Hepatosplenomegaly, No Masses Extremities: No Clubbing, No Cyanosis, No Edema, Normal Pulses, No Tenderness/ Swelling Skin: No Rashes, No Breakdown, No Significant Lesion Neuro: Normal Gait, Normal Speech, Strength at 5/5 X4 Ext, Normal Tone, Sensation Intact Psych/Mental Status: Mental Status NL, Mood NL Results Lab Laboratory Tests 11/18/17 18:30 11/19/17 03:35 A/P-Cardiology Admission Diagnosis Shortness of breath Congestive heart failure Hypertension Hyperlipidemia Assessment/Plan Shortness of breath, congestive heart failure with elevated BNP, 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 Started on Toprol instead of atenolol and stop amlodipine and started losartan.. I will give one additional dose of Lasix Coronary artery disease, ulcerated plaque in the LAD, successful primary stenting using 3.515 mm Alpine stent with excellent results. Continue on aspirin and Plavix Mild thrombocytopenia, continue to monitor closely. X Mild anemia post catheterization with aggressive fluid hydration, I gave her 2 units of packed RBCs and we'll continue to monitor Mild bilateral carotid stenosis, nonobstructive disease, last checkup was done in August 2016, continue to monitor Hypertension, has been on atenolol and amlodipine, had hypotension yesterday, I changed her medication to Toprol and losartan and I will evaluate her tolerance and response Hyperlipidemia, continue to monitor lipids Mild peripheral edema, reporting improvement. Continue to monitor History of Pulmonary nodule, noted incidentally. Followed and managed by primary care physician Family history of heart disease. Clinical Quality Measures DVT/VTE Risk/Contraindication: Risk Factor Score Per Nursin RFS Level Per Nursing on Admit: 2=Moderate HIPOLITO AGUDELO MD Nov 19, 2017 07:35
--- NOTE | 2017-11-19 08:04 | Diagnostic Imaging Report ---
INDICATION: Dyspnea. FINDINGS: Portable upright AP view of the chest is obtained. Heart size is at the upper limits of normal. Pulmonary vascularity is within normal limits. There is mild bilateral basilar atelectasis and/or pneumonitis. There is nodular focus projected over the left upper lobe just above the level of the aortic knob which could represent area of focal infiltrate or lung mass. There is no evidence of lobar consolidation. IMPRESSION: Basilar atelectasis with heart size at the upper limits of normal. There is a probable 1 cm nodular focus in the left upper lobe which may represent infiltrate or pulmonary nodule. Clinical correlation would be useful. Short-term radiographic followup could be performed to document stability or resolution. If this finding persists, consideration should be given to followup CT imaging. Dictated by: Dictated on workstation # [id number]
[2017-11-19] MEDS: LOSARTAN 25 MG (COZAAR) TAB PO SCH (08:20)
[2017-11-19] MEDS: CLOPIDOGREL 75 MG (PLAVIX) TABLET PO SCH (08:20)
[2017-11-19] MEDS: ASPIRIN E.C. 81 MG (ECOTRIN) TAB PO SCH (08:20)
[2017-11-19] MEDS: ATENOLOL 25 MG (TENORMIN) TAB PO SCH (08:20)
[2017-11-19] MEDS: DOPamine DRIP 250 ML IV SCH (19:42)
[2017-11-20] VITALS (10 sets, daily range): BP systolic 111–131; BP diastolic 47–64
[2017-11-20] MEDS: NS IV 1000 ML 1,000 ML IV SCH (00:26)
[2017-11-20 03:35] LABS: BASOPHILS % (AUTO) 1 % (0-10); EOSINOPHILS # (AUTO) 0.4 10^3/uL (0.0-0.3); EOSINOPHILS % (AUTO) 6 % (0-10); HEMATOCRIT 36 % (35-52); LYMPHOCYTES # (AUTO) 1.2 X 10^3 (1.0-4.0); LYMPHOCYTES % (AUTO) 20 % (12-44); MEAN CORPUSCULAR HEMOGLOBIN 29 PG (25-34); MEAN CORPUSCULAR HGB CONC 34 G/DL (32-36); MEAN CORPUSCULAR VOLUME 85 FL (80-99); MEAN PLATELET VOLUME 11.4 FL (7.4-10.4); MONOCYTES # (AUTO) 0.8 X 10^3 (0.0-1.0); MONOCYTES % (AUTO) 13 % (0-12); NEUTROPHILS # (AUTO) 3.8 X 10^3 (1.8-7.8); NEUTROPHILS % (AUTO) 61 % (42-75); PLATELET COUNT 103 10^3/uL (130-400); RED BLOOD COUNT 4.21 10^6/uL (4.35-5.85); RED CELL DISTRIBUTION WIDTH 16.6 % (10.0-14.5); WHITE BLOOD COUNT 6.3 10^3/uL (4.3-11.0)
[2017-11-20 03:58] LABS: CALCIUM 7.7 MG/DL (8.5-10.1); CREATININE SERUM 1.03 MG/DL (0.60-1.30); PHOSPHORUS 3.6 MG/DL (2.3-4.7); POTASSIUM 3.2 MMOL/L (3.6-5.0)
--- NOTE | 2017-11-20 05:04 | Pulmonary Progress Note ---
Subjective Time Seen by Provider: 05:11 Subjective/Events-last exam No complications noted. BP is stable. Denies SOB currently. Exam Exam Vital Signs Date Time Temp Pulse Resp B/P (MAP) Pulse Ox O2 Delivery O2 Flow Rate FiO2 11/20/17 04:00 97.7 11/20/17 03:49 94 Room Air 11/20/17 02:35 Nasal Cannula 1.00 11/20/17 02:00 72 21 124/52 (76) 94 Nasal Cannula 1.00 11/20/17 01:00 71 27 111/51 (71) 95 Nasal Cannula 1.00 11/20/17 01:00 71 11/20/17 00:00 71 22 122/47 (72) 95 Nasal Cannula 1.00 11/20/17 00:00 94 Room Air 11/19/17 23:00 72 22 112/50 (70) 95 Nasal Cannula 1.00 11/19/17 22:38 Nasal Cannula 1.00 11/19/17 22:00 75 30 135/55 (81) 90 Room Air 11/19/17 21:00 76 39 122/53 (76) 92 Room Air 11/19/17 20:00 94 Room Air 11/19/17 20:00 97.9 11/19/17 20:00 73 17 119/52 (74) 96 Room Air 11/19/17 19:00 73 11 121/66 (84) 94 Room Air 11/19/17 19:00 73 11/19/17 18:00 65 8 109/69 (82) 90 Room Air 11/19/17 17:00 71 41 107/55 (72) 92 Room Air 11/19/17 16:30 97.8 11/19/17 16:00 74 16 120/50 (73) 93 Room Air 11/19/17 16:00 Room Air 11/19/17 15:00 79 19 117/69 (85) 91 11/19/17 14:00 70 23 124/54 (77) 91 Room Air 11/19/17 13:00 69 23 120/51 (74) 91 Room Air 11/19/17 13:00 66 11/19/17 12:14 97.7 11/19/17 12:00 Room Air 11/19/17 12:00 70 19 117/54 (75) 96 Room Air 11/19/17 11:00 65 18 105/80 (88) 96 Room Air 11/19/17 10:00 71 25 113/49 (70) 95 Room Air 11/19/17 09:00 82 18 111/52 (71) 96 Room Air 11/19/17 08:30 Room Air 11/19/17 08:00 Nasal Cannula 2.00 11/19/17 08:00 98.0 73 14 113/96 (102) 96 Nasal Cannula 2.00 11/19/17 07:39 Nasal Cannula 2.00 11/19/17 07:00 79 11/19/17 07:00 78 18 120/58 (78) 95 Nasal Cannula 2.00 11/19/17 05:00 75 11 122/52 (75) 93 Nasal Cannula 2.00 I & O 11/20/17 07:00 Intake Total 1850 ml Output Total 965 ml Balance 885 ml General Appearance: No Apparent Distress, WD/WN, Thin HEENT: Normal ENT Inspection, Pharynx Normal Neck: Full Range of Motion, Non Tender, Supple Respiratory: Chest Non Tender, No Accessory Muscle Use, No Respiratory Distress Cardiovascular: Regular Rate, Rhythm, No Edema, Normal Peripheral Pulses Capillary Refill: Less Than 3 Seconds Gastrointestinal: normal bowel sounds, non tender, soft, no organomegaly Extremity: Normal Capillary Refill, Normal Inspection, Normal Range of Motion Neurologic/Psychiatric: Alert Skin: Normal Color, Warm/Dry Lymphatic: No Adenopathy Results Lab Laboratory Tests 11/18/17 06:05 11/18/17 18:30 11/19/17 03:35 11/20/17 03:25 Assessment/Plan Assessment/Plan Worsening SOB with CHF EF 20% -Cardiology following Atelectasis -Increase activity Metabolic acidosis -Monitor close may have to give more IVF. Will just monitor for now. BNP is 2459 Monitor for dehydration - BUN is trending -No lasix is scheduled for today and pt will be getting IVF with KCL. CAD s/p Cath with stent placement peripheral PIPER Lung mass r/o Cancer -Negative PET in 08/31- radiology recommended 3 mo f/u S/p hypotension improved after 2 units of PRBC -Dopamine is now off Hypokalemia -replace with 60 KCL IV Decreased UO 25cc/hr -Will monitor for now and see if it picks up. Never smoker Labs and radiology reviewed. Pt is ok to floor when ok with cardiology. Will have pt f/u with me after discharge to follow lung nodule. 233 MORTEZA WOODRUFF DO Nov 20, 2017 05:04
[2017-11-20] MEDS ORDERED: NS IV 500 ML 500 ML ONE (05:08)
[2017-11-20] MEDS: POTASSIUM CL 10MEQ/50ML IVPB 50 ML IV SCH ×6 (05:15→09:24)
[2017-11-20] MEDS: MAGNESIUM 1 GM/100 ML IVPB 100 ML IV SCH (05:30)
[2017-11-20] MEDS: KCL 20 MEQ TAB (K-DUR) PO SCH (05:30)
[2017-11-20] MEDS ORDERED: FAMOTIDINE 20 MG (PEPCID) TABLET PO PRN (08:15)
[2017-11-20] MEDS: ATENOLOL 25 MG (TENORMIN) TAB PO SCH (08:18)
[2017-11-20] MEDS: ASPIRIN E.C. 81 MG (ECOTRIN) TAB PO SCH (08:18)
[2017-11-20] MEDS: CLOPIDOGREL 75 MG (PLAVIX) TABLET PO SCH (08:18)
[2017-11-20] MEDS: LOSARTAN 25 MG (COZAAR) TAB PO SCH (08:18)
--- NOTE | 2017-11-20 08:54 | Progress Note-Cardiology ---
Cardiology SOAP Progress Note Subjective: No cp or shortness of breath or palp or syncope. Wishes to go home Objective: I&O/Vital Signs 11/19/17 11/19/17 11/19/17 11/20/17 22:00 22:38 23:00 00:00 Pulse 75 72 Resp 30 22 B/P (MAP) 135/55 (81) 112/50 (70) Pulse Ox 90 95 94 O2 Delivery Room Air Nasal Cannula Nasal Cannula Room Air O2 Flow Rate 1.00 1.00 11/20/17 11/20/17 11/20/17 11/20/17 00:00 01:00 01:00 02:00 Pulse 71 71 71 72 Resp 22 27 21 B/P (MAP) 122/47 (72) 111/51 (71) 124/52 (76) Pulse Ox 95 95 94 O2 Delivery Nasal Cannula Nasal Cannula Nasal Cannula O2 Flow Rate 1.00 1.00 1.00 11/20/17 11/20/17 11/20/17 11/20/17 02:35 03:00 03:49 04:00 Temp 97.7 Pulse 70 Resp 22 B/P (MAP) 112/48 (69) Pulse Ox 95 94 O2 Delivery Nasal Cannula Nasal Cannula Room Air O2 Flow Rate 1.00 1.00 11/20/17 11/20/17 11/20/17 11/20/17 04:00 05:00 06:00 07:57 Pulse 76 75 89 Resp 34 25 24 B/P (MAP) 117/56 (76) 131/57 (81) 131/52 (78) Pulse Ox 94 94 93 O2 Delivery Nasal Cannula Nasal Cannula Room Air Nasal Cannula O2 Flow Rate 1.00 1.00 1.00 11/20/17 11/20/17 08:00 08:00 Temp 97.9 Pulse 85 Resp 14 B/P (MAP) 120/64 (82) Pulse Ox 94 O2 Delivery Room Air Room Air 11/20/17 00:00 Intake Total 1460 ml Output Total 555 ml Balance 905 ml Weight (Pounds): 124 Weight (Ounces): 4.0 Weight (Calculated Kilograms): 56.489391 Constitutional: AAO x 3, well-developed, well-nourished Respiratory: No accessory muscle use; lungs clear to percussion, lungs clear to auscultation Cardiovascular: regular rate-rhythm, S1 and S2, systolic murmur (soft CARLINE at card base) Gastrointestional: No tender; soft; No guarding, No rebound; audible bowel sounds Extremities: swelling (mild, bilateral, pitting edema of the legs); No clubbing , No cyanosis Neurologic/Psychiatric: grossly intact, power is 5/5 both on sides Skin: No rash on exposed areas, No ulcerations on exposed areas Results/Procedures: Labs Laboratory Tests 11/19/17 16:52: Lab Scanned Report Transfusion Reaction Form 11/20/17 03:25: White Blood Count 6.3, Red Blood Count 4.21L, Hemoglobin 12.0, Hematocrit 36, Mean Corpuscular Volume 85, Mean Corpuscular Hemoglobin 29, Mean Corpuscular Hemoglobin Concent 34, Red Cell Distribution Width 16.6H, Platelet Count 103L, Mean Platelet Volume 11.4H, Neutrophils (%) (Auto) 61, Lymphocytes (%) (Auto) 20 , Monocytes (%) (Auto) 13H, Eosinophils (%) (Auto) 6, Basophils (%) (Auto) 1, Neutrophils # (Auto) 3.8, Lymphocytes # (Auto) 1.2, Monocytes # (Auto) 0.8, Eosinophils # (Auto) 0.4H, Basophils # (Auto) 0.0, Sodium Level 143, Potassium Level 3.2L, Chloride Level 112H, Carbon Dioxide Level 19L, Anion Gap 12, Blood Urea Nitrogen 21H, Creatinine 1.03, Estimat Glomerular Filtration Rate 51, BUN/ Creatinine Ratio 20, Glucose Level 89, Calcium Level 7.7L, Phosphorus Level 3.6 , Magnesium Level 2.0 Sybil Carpenter MD Laboratory Tests 11/18/17 18:30 11/19/17 03:35 11/20/17 03:25 A/P: Assessment: Ac on chronic systolic congestive heart failure, currently clinically stable Ischemic cardiomyopathy with aneurysmal anterior wall and apex Echo of 11/18/17: LVEF 30-35%, anteroapical hypo/akinesis, mild AI, mild to mod TR , PASP 50 mmHg, small amount of pericard fluid w/o hemodynamic significance Coronary artery disease, ulcerated plaque in the LAD, successful primary stenting using 3.515 mm Alpine stent on 11/18/17 (Dr Astorga) Transient hypotension post-cath, now stable Mild thrombocytopenia, stable Mild anemia post catheterization with aggressive fluid hydration, s/p 2 units of packed RBCs, stable Mild bilateral carotid stenosis, nonobstructive disease, on carotid u/s of August 2016 Hyperlipidemia Mild peripheral edema History of Pulmonary nodule, noted incidentally. Followed and managed by primary care physician Hypokalemia, being replenished Plan: * I discussed her case with Dr Astorga yesterday * I reviewed her records, examined her, and spoke with her * Continue therapy with dual antiplatelet therapy, bb, ARB, low dose diuretics, and replacement K * Follow closely as outpatient * I reviewed the management of CHF with her and answered questions * F/u next week with Dr Astorga * Return to ER in case of new symptoms or recurrent symptoms FRANCOISE GEE MD FACP [facility]S Nov 20, 2017 08:54
[2017-11-20] MEDS ORDERED: METO-351 PO (09:05)
[2017-11-20] MEDS ORDERED: CLOP75TA28 PO (09:05)
[2017-11-20] MEDS ORDERED: LOSA25TA21 PO (09:05)
[2017-11-20] MEDS ORDERED: ASPI-999 PO (09:05)
[2017-11-20] MEDS ORDERED: KCL 10 MEQ TAB (MICRO K) PO ONE ×2 (09:08→09:30)
[2017-11-20] MEDS ORDERED: FURO20TA4 PO (09:08)
[2017-11-20] MEDS ORDERED: POTA10TA PO (09:08)
--- NOTE | 2017-11-20 09:11 | Discharge Inst-Post CATH ---
Discharge Inst-CATH Post Cardiac Cath D/C Inst Follow Up/Plan F/u with Dr Astorga next week CARDIAC CATH DISCHARGE INSTRUCTIONS *Hold Metformin for 48 hours post heart cath. ACTIVITY * Go Home directly and rest. * Limit activity of the leg (or wrist if it was used) for 7 days including aerobics, swimming, jogging, bicycling, etc. * Restrict stair-climbing for 7 days if possible, if not, climb up with your non -cath leg, then bring together on the same step. * Avoid lifting, pushing, pulling or excessive movement of the affected extremity for 7 days. * Customary sexual activity may be resumed after 2 days-use caution not to use a position that strains or causes pain to the affected extremity. * No driving for 24 hours. * NO SMOKING. * Avoid straining for bowel movements for 7 days. * Gentle walking on level ground is allowed. * Returning to work will depend on the type of procedure and the results. Your doctor will discuss this with you. CALL YOUR DOCTOR FOR ANY OF THE FOLLOWING: *If bleeding from the puncture site occurs- Apply gentle pressure to site with clean cloth and call your doctor or EMS. * If a knot or lump forms under the skin, increases in size, or causes pain. * If bruising appears to be worsening or moving further down your leg instead of disappearing. * Temperature above 101 F. CARE OF YOUR GROIN INCISION; * Bruising or purple discoloration of the skin near the puncture site is common. * You may shower only, no bathtub bathing for 5 days. Be careful to avoid slipping as your leg may feel stiff. * If a closure device was used on your femoral artery, please see the attached guide regarding care of the device and your leg. * REMOVE the dressing from your groin the next day after your procedure in the shower. CARE OF YOUR WRIST INCISION; * Bruising or purple discoloration of the skin near the puncture site is common. * You may shower. * DO NOT submerge wrist. * Remove dressing in 24 hours. FRANCOISE GEE MD [facility] Nov 20, 2017 09:11
--- NOTE | 2017-11-20 09:12 | Discharge Inst-Cardiology ---
Discharge Inst-Cardiac Discharge Medications New Medications: Aspirin (Aspirin) 81 Mg Tab.chew 81 MG PO DAILY, #30 TAB 5 Refills Furosemide (Furosemide) 20 Mg Tablet 20 MG PO Q48H, #15 TAB 3 Refills Metoprolol Succinate (Toprol Xl) 25 Mg Tab.er.24h 25 MG PO DAILY, #30 TAB 5 Refills Potassium Chloride (K-Tab ER) 10 Meq Tablet.er 10 MEQ PO Q48H for 15 Days, #15 TAB 5 Refills Clopidogrel Bisulfate (Clopidogrel) 75 Mg Tablet 75 MG PO DAILY for 30 Days, #30 TAB 5 Refills Losartan Potassium (Losartan Potassium) 25 Mg Tablet 25 MG PO DAILY for 30 Days, #30 TAB 5 Refills Continued Medications: Loratadine (Loratadine) 10 Mg Tablet 10 MG PO DAILY, TAB Simvastatin (Zocor) 40 Mg Tablet 40 MG PO HS, TAB Discontinued Medications: Amlodipine Besylate (Amlodipine Besylate) 2.5 Mg Tablet 2.5 MG PO HS, TAB Aspirin (Aspirin EC) 81 Mg Tablet.dr 81 MG PO DAILY, TAB Atenolol (Atenolol) 25 Mg Tablet 12.5 MG PO DAILY, TAB TAKES 1/2 (25MG) TABLET Ibuprofen (Advil) 200 Mg Tablet 400 MG PO QID, TAB TAKES 2 (200MG) TABLETS Patient Instructions Patient Instructions: F/u with Dr Astorga next week FRANCOISE GEE MD [facility] CCDS Nov 20, 2017 09:11
[2017-11-20] MEDS ORDERED: FUROSEMIDE 20 MG (LASIX) TAB PO NR (09:15)
[2017-11-20] MEDS ORDERED: KCL 20 MEQ TAB (K-DUR) PO NR (09:15)
[2017-11-20] MEDS ORDERED: KCL 20 MEQ POWDER FOR ORAL SOLUTION ONE (09:20)
[2017-11-20] MEDS ORDERED: KCL 20 MEQ POWDER FOR ORAL SOLUTION PO ONE (09:30)
--- NOTE | 2017-11-20 09:40 | Diagnostic Imaging Report ---
Portable erect AP chest at 3:20 Indication: Dyspnea. The borderline cardiomegaly and the bibasilar pneumonia/atelectasis and fluid seen on the prior exam of 11/19/2017 are again evident and essentially no different. If anything the density in the left lung base is slightly greater. The small patchy infiltrate in the right midlung periphery and the nodular density overlying the left upper lung seen previous are also again visualized and stable. However the central pulmonary vascularity does seem less prominent than on the prior exam. The mediastinum is not widened. The osseous structures are intact. Impression: The appearance of the chest has improved somewhat as the central pulmonary vascularity does not appear as prominent as noted previously. There is still persistent involvement of both lung bases by atelectasis/infiltrate and fluid however. A followup study would be recommended for continued evaluation. Dictated by: Dictated on workstation # [id number]
--- NOTE | 2017-11-20 09:48 | Cardiology Discharge Summary ---
Diagnosis/Chief Complaint Date of Admission Nov 17, 2017 at 22:43 Date of Discharge 11/20/17 Final/Discharge Diagnosis Ac on chronic systolic congestive heart failure, currently clinically stable Ischemic cardiomyopathy with aneurysmal anterior wall and apex Echo of 11/18/17: LVEF 30-35%, anteroapical hypo/akinesis, mild AI, mild to mod TR , PASP 50 mmHg, small amount of pericard fluid w/o hemodynamic significance Coronary artery disease, ulcerated plaque in the LAD, successful primary stenting using 3.515 mm Alpine stent on 11/18/17 (Dr Astorga) Transient hypotension post-cath, now stable Mild thrombocytopenia, stable Mild anemia post catheterization with aggressive fluid hydration, s/p 2 units of packed RBCs, stable Mild bilateral carotid stenosis, nonobstructive disease, on carotid u/s of August 2016 Hyperlipidemia Mild peripheral edema History of Pulmonary nodule, noted incidentally. Followed and managed by primary care physician Hypokalemia, being replenished Chief Complaint/HPI Chief Complaint/HPI Please refer to the progress note of the same date (11/20/17) for condition at discharge Discharge Summary Hospital Course Pending Labs Laboratory Tests 11/20/17 03:25: White Blood Count 6.3, Red Blood Count 4.21, Hemoglobin 12.0, Hematocrit 36, Mean Corpuscular Volume 85, Mean Corpuscular Hemoglobin 29, Mean Corpuscular Hemoglobin Concent 34, Red Cell Distribution Width 16.6, Platelet Count 103, Mean Platelet Volume 11.4, Neutrophils (%) (Auto) 61, Lymphocytes (%) (Auto) 20 , Monocytes (%) (Auto) 13, Eosinophils (%) (Auto) 6, Basophils (%) (Auto) 1, Neutrophils # (Auto) 3.8, Lymphocytes # (Auto) 1.2, Monocytes # (Auto) 0.8, Eosinophils # (Auto) 0.4, Basophils # (Auto) 0.0, Sodium Level 143, Potassium Level 3.2, Chloride Level 112, Carbon Dioxide Level 19, Anion Gap 12, Blood Urea Nitrogen 21, Creatinine 1.03, Estimat Glomerular Filtration Rate 51, BUN/ Creatinine Ratio 20, Glucose Level 89, Calcium Level 7.7, Phosphorus Level 3.6, Magnesium Level 2.0 Discussion & Recommendations Home Medications Reviewed patient Home Medication Reconciliation performed by pharmacy medication reconciliations digital field service technician and/or nursing. Patients Allergies have been reviewed. Discharge Home Medications: Reviewed and agree with Discharge Medication list on patient's Discharge Instruction sheet Instructions to patient/family F/u with Dr Astorga next week Clinical Quality Measures DVT/VTE Risk/Contraindication: Risk Factor Score Per Nursin RFS Level Per Nursing on Admit: 2=Moderate FRANCOISE GEE MD FACP FAC CCDS Nov 20, 2017 09:48
== END 2017-11-20 12:18 | disposition home or self-care (01) | DRG 247 ==
LOC: EDSTATUS 09:34 → ICU 22:43 → UNDOADMIN 22:43 → ICU 22:45 → OBSVTOIN 11-18 13:17 → UNDODISIN 11-20 12:18
PROVIDERS: ADMIT Internal Medicine Cardiovascular Disease; ATTEND Internal Medicine Cardiovascular Disease
PROC: 027034Z Dilation of Coronary Artery, One Artery with Drug-eluting Intraluminal Device, Percutaneous Approach (ICD-10-PCS; principal; 2017-11-18)
PROC: 4A023N7 Measurement of Cardiac Sampling and Pressure, Left Heart, Percutaneous Approach (ICD-10-PCS; 2017-11-18)
PROC: B2111ZZ Fluoroscopy of Multiple Coronary Arteries using Low Osmolar Contrast (ICD-10-PCS; 2017-11-18)
DX: I11.0 Hypertensive heart disease with heart failure (principal); E87.2 Acidosis; I50.23 Acute on chronic systolic (congestive) heart failure; I25.5 Ischemic cardiomyopathy; I25.10 Atherosclerotic heart disease of native coronary artery without angina pectoris; I08.3 Combined rheumatic disorders of mitral, aortic and tricuspid valves; I95.81 Postprocedural hypotension; D69.59 Other secondary thrombocytopenia; R91.1 Solitary pulmonary nodule; K21.9 Gastro-esophageal reflux disease without esophagitis; M19.91 Primary osteoarthritis, unspecified site; E83.42 Hypomagnesemia; D64.9 Anemia, unspecified; I65.23 Occlusion and stenosis of bilateral carotid arteries; E78.5 Hyperlipidemia, unspecified; E87.6 Hypokalemia; R94.31 Abnormal electrocardiogram [ECG] [EKG]; J30.2 Other seasonal allergic rhinitis; R25.2 Cramp and spasm; T45.515A Adverse effect of anticoagulants, initial encounter; Z82.49 Family history of ischemic heart disease and other diseases of the circulatory system
CPT/HCPCS: 36221; 36415; 71045; 71250; 74176; 80048; 80053; 80061; 83735; 83880; 84100; 84443; 84484; 85025; 85027; 85610; 85730; 86850; 86900; 86901; 86920; 93005; 93306; 93458

== ENCOUNTER → 2018-04-29 | Outpatient (CLI) | payer MEDICARE, OTHER ==
[~2018-04-29] VITALS: Ht 167.6 cm; Wt 56.2 kg
[~2018-04-29] MED LIST changes: +AMLO2.5T3 PO; +ASPI-983 PO; +ASPI-999 PO; +ATEN25TA PO; +CLOP75TA28 PO; +FURO20TA4 PO; +IBUP-30 PO; +LORA10TA7 PO; +LOSA25TA6 PO; +METO-351 PO; +POTA10TA PO; +SIMV40TA PO
[2018-04-29] MEDS: CATHETER FLUSH 10 ML SYR IV PRN ×2 (08:05→09:37)
[2018-04-29 09:34] VITALS: BP 177/77
--- NOTE | 2018-04-29 14:50 | STRESS TEST ---
DATE OF SERVICE: 04/29/2018 LEXISCAN MYOVIEW STRESS TEST REPORT Baseline heart rate is 80, baseline blood pressure is 177/77. Baseline EKG is sinus rhythm with occasional PVCs. In summary, the patient received 10.35 mCi of technetium-99 Myoview and the resting images were obtained. Then, the patient received 0.4 mg of Lexiscan followed by 30.2 mCi of technetium-99 Myoview. Throughout the test, there were no EKG changes, the patient had multiple PVCs and ventricular bigeminy during test. The resting and stress images were reviewed and compared in the short axis, horizontal long axis, and vertical long axis views. Review of the images showed no significant ischemia or infarction. SSS is 0. TID value 0.9. On the gated images, the left ventricle appeared to be small in size with normal contractility. Calculated ejection fraction 81%. CONCLUSION: 1. The patient tolerated Lexiscan well. 2. Multiple PVCs noted during test and transient ventricular bigeminy. 3. No ischemia or infarction on SPECT images. 4. Normal left ventricular size with normal contractility. Calculated ejection fraction 81%. Job ID: [id number] DocumentID: [id number] Dictated Date: 04/29/2018 14:40:13 Labor Relations Or Personnel Negotiator Date: 04/29/2018 14:49:16 Dictated By: HIPOLITO AGUDELO MD
== END ==
LOC: CARD 07:38
PROVIDERS: ATTEND Internal Medicine Cardiovascular Disease
DX: I11.0 Hypertensive heart disease with heart failure (principal); I50.9 Heart failure, unspecified; I25.10 Atherosclerotic heart disease of native coronary artery without angina pectoris; R06.02 Shortness of breath; R91.8 Other nonspecific abnormal finding of lung field
CPT/HCPCS: 78452; 93017